=== PATIENT | male | born 1990 | race Caucasian/White ===

== ENCOUNTER 2016-11-19 16:27 | Inpatient (IN) | payer MEDICARE, OTHER ==
[~2016-11-19] VITALS: Ht 172.7 cm; Wt 66.1 kg
--- NOTE | 2016-11-19 | NUR ---
K 4.8 Addendum: 11/20/16 at 0513 by Evelina Huerta RN 11/20 @ 0000
[~2016-11-19 16:27] MED LIST: CARB100T PO; INSU100I10 SQ; INSU100I14 SQ; INSU100V2 SQ; INSU100V32 SQ
--- OUTSIDE RECORDS SUMMARY | 2016-11-19 16:31 | XMS REPORT | Summary of Care ---
Author Author Ramakrishna Anthony Organization Unknown Address [address], [place] [id number] Phone Unavailable Care Team Providers Care Pet Ambassador Name Role Phone Ramakrishna Anthony Unavailable Unavailable Saúl Tracy PP Unavailable Unavailable Unavailable Functional Status Functional Status Health Issues Name Dates Details Functional status health issues are not documented Status: Cognitive Status Health Issues Name Dates Details Cognitive status health issues are not documented Status: Problems Name Dates Details Type I diabetes mellitus, well controlled (250.01, E10.9) Status: Active Medications Name Dates Details NovoLOG FlexPen 100 UNIT/ML Subcutaneous Solution Pen-injector INJECT 15 UNITS SUBQ AC TID Quantity: 3 Refills: 3 Ramakrishna Anthony Started 18-Mar-2016 Active3 ML Pen (5 Pens) Levemir FlexTouch 100 UNIT/ML Subcutaneous Solution Pen-injector INJECT SUBCUTANEOUSLY UP TO 27 UNITS PER SLIDING SCALE DAILY. Quantity: 2 Refills: 2 Raj Ramakrishna Started 18-Mar-2016 Active3 ML Pen (5 Pens) Allergies and Adverse Reactions Name Dates Details No Known Drug Allergies Status: Active Procedures Procedure Dates Details Procedures not documented Immunization Name Dates Details Immunizations not documented Social History Name Dates Details Smoking StatusNever smoker Vital Signs Date Test Result Details No Known Vitals to report Results Date Description Value Details Results not documented Plan of Care Planned Observations Name Dates Details Planned Goals not documented Goal Instructions Instructions not documented Encounters Appointment; Ramakrishna Anthony Encounter Diagnosis: Problem not documented On 18-Mar-2016 15:15
[2016-11-19] MEDS ORDERED: LANTUS SOL100 UNIT/1 SC (16:49)
[2016-11-19] MEDS ORDERED: INSU100I14 SC (16:49)
[2016-11-19] MEDS ORDERED: SODIUM CHLORIDE FLUSH 3 ML SYR IV PRN (16:55)
[2016-11-19] MEDS ORDERED: ONDANSETRON 2 MG/ML (Z0FRAN) 2 ML VIAL IV ONE (17:00)
[2016-11-19] MEDS ORDERED: FUROSEMIDE 40 MG/4 ML (LASIX) VIAL IV ONE (17:30)
[2016-11-19 18:13] LABS: MEAN CORPUSCULAR HEMOGLOBIN 30.4 PG (26.0-34.0); MEAN CORPUSCULAR HGB CONC 34.5 g/dL (31.0-37.0); MEAN CORPUSCULAR VOLUME 88 FL (80-100); PLATELET COUNT 232 10^3uL (150-450); WHITE BLOOD COUNT 24.35 10^3uL (4.0-11.0)
[2016-11-19 18:18] LABS: BILIRUBIN,URINE Negative (Negative); CLARITY,URINE Clear; COLOR,URINE Yellow; GLUCOSE, URINE (UA) 2+ (Negative); LEUKOCYTE ESTERASE ,URINE Negative (Negative); UROBILINOGEN,URINE 0.2 mg/dL (0.2-1.0)
--- NOTE | 2016-11-19 18:20 | NUR ---
PATIENT HAS ACCIDENTALLY PULLED OUT IV WHEN HE GOT HIMSELF UP TO THE TOILET WITHOUT CALLING FOR ASSISTANCE. IV SITE ACTIVELY BLEEDING WHEN THIS NURSE ARRIVED IN ROOM. BLEEDING SITE COVERED WITH 10 PACK OF STERILE 4x4 AND SECURED WITH COBAN. APPROX 475 ML OF IVF HAS INFUSED PRIOR TO IV CATH REMOVAL.
[2016-11-19 18:25] LABS: ACETONE SERUM 2+ (Negative)
[2016-11-19 18:26] LABS: ALBUMIN 5.4 g/dL (3.4-5.0); ALKALINE PHOSPHATASE 134 U/L (38-126); ANION GAP 44.2 MEQ/L (3-15); BUN/CREATININE RATIO 16 (10-20); CALCULATED IONIZED CALCIUM 4.1 mg/dL (3.8-4.6); TOTAL PROTEIN 7.7 g/dL (6.4-8.5)
[2016-11-19 18:27] LABS: RBC,URINE 0-2 /HPF; URINE CENTRIFUGED VOLUME 12 mL
--- NOTE | 2016-11-19 18:34 | NUR ---
DR. WELDON INFORMED THAT PATIENT'S IV WAS PULLED OUT.
[2016-11-19] MEDS ORDERED: INSULIN REGULAR 1 UNIT/0.01 ML DOSE IV ONE (18:55)
[2016-11-19] MEDS ORDERED: SODIUM CHLORIDE IV PRN ×2 (19:35)
[2016-11-19] MEDS ORDERED: INSULIN REGULAR IV PRN ×2 (19:35)
[2016-11-19] MEDS ORDERED: [UNRECOGNIZED DRUG - OTHER] IV PRN ×2 (19:35)
[2016-11-19 19:51] LABS: BAND NEUTROPHILS % 4 % (0-6); EOSINOPHILS % 0 % (0-4); LYMPHOCYTES # 1.2 #; MONOCYTES # 2.4 #; MONOCYTES % 10 % (3-11); SEGMENTED NEUTROPHILS % 80 % (51-67); TOTAL CELLS COUNTED 100
[2016-11-19 19:52] LABS: RBC MORPH NORMAL (NORMAL)
--- NOTE | 2016-11-19 20:03 | NUR ---
Pt voided 200 cc of clear yellow urine.
[2016-11-19 20:04] LABS: ABG PCO2 123 mmHg (35-45); ABG PO2 135 mmHg (80-105)
[2016-11-19 20:05] LABS: ABG OXYGEN SATURATION 98 % (95-98)
[2016-11-19 20:20] LABS: MAGNESIUM* 2.5 mg/dL (1.6-2.3)
--- NOTE | 2016-11-19 20:31 | NUR ---
Alysha RN & SHANNA Shah from ICU mixed insulin for the IV Insulin drip. Alysha brought down the bag and started it on the pt in the left AC IV site.
--- NOTE | 2016-11-19 20:35 | NUR ---
Patient arrives to the unit via cart admitted to room 342, IV Insulin @ 7 ml/hr and NS bolus infusing, uses urinal immediately output 175 clear yellow, pants and underwear saturated removed. Grandmother in waiting room at this time.
[2016-11-19] MEDS ORDERED: DEXTROSE 50% 25 GM/50 ML SYRINGE IV PRN (20:45)
[2016-11-19] MEDS ORDERED: CALCIUM CARBONATE CHEWABLE 300 MG (TUMS) TABLET PO PRN (20:45)
[2016-11-19] MEDS ORDERED: MAG HYDROX/AL HYDROX/SIMETH 200-200-20/5 ML (MAG-AL PLUS) 30 ML UDC PO PRN (20:45)
[2016-11-19] MEDS ORDERED: DEXTROSE ORAL GEL (GLUTOSE 40%) 15 GM TUBE PO PRN (20:45)
[2016-11-19] MEDS ORDERED: GLUCAGON EMERGENCY 1 MG/KIT IM PRN (20:45)
[2016-11-19] MEDS ORDERED: ONDANSETRON 2 MG/ML (Z0FRAN) 2 ML VIAL IV PRN (20:45)
[2016-11-19] MEDS ORDERED: POLYETHYLENE GLYCOL 17 GM (MIRALAX) PACKET PO PRN (20:45)
[2016-11-19] MEDS ORDERED: INSULIN REGULAR VIAL 100 UNIT in SODIUM CHLORIDE 100 ML IV SCH (20:45)
[2016-11-19] MEDS ORDERED: POTASSIUM CL IVPB 50 ML IV PRN (20:45)
[2016-11-19] MEDS ORDERED: MAGNESIUM HYDROXIDE 80MG/ML (MILK OF MAGNESIA) 30 ML UDC PO PRN (20:45)
[2016-11-19] MEDS ORDERED: DOCUSATE SODIUM 100 MG (COLACE) CAP PO PRN (20:45)
[2016-11-19] MEDS ORDERED: PROMETHAZINE HCL INJ 12.5 MG in SODIUM CHLORIDE 25 ML IV PRN (20:45)
--- NOTE | 2016-11-19 21:27 | History and Physical (E) ---
History & Physical PCP: Saúl Tracy MD CC: vomiting HPI Hong Levine is a 26 year old male admitted from ED 11/19 with SIRS and DKA. He reported vomiting x 7 today. Feeling constipated. Has had BMs but they have been small, he says. In ED he was initially mildly tachycardic but other vitals charted as stable. WBC was 24.35 with 80% N and 4% B. Chemistry consistent with hyperglycemia and DKA with initial AG = 38. K was initially 7.2. (EKG showed peaked T-waves. Calcium was not given.) Mg 2.5. Phos 6.0. ABG showed pH 7.10, pCO2 123, pO2 135. He was given 1 L NS bolus in ED, another on transfer, insulin regular 7 units, and he was transferred to ICU for further management. On arrival to unit, awake, interactive, pleasant, able to speak in full sentences. Oriented. Not having pain or nausea at present. Onset of illness was just today with vomiting. States he started having vomiting and blood sugar this early AM was actually low at 68. Couldn't keep any food or fluid down though he tried to eat some bread and cheese. No diarrhea. Actually has been feeling more constipated than anything. Has been taking insulin as prescribed and denies missing doses. Prior to today, no fever or chills. No cough. No URI symptoms. No UTI symptoms. 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 HOME MEDICATIONS: Please see list at end of report. FH Doesn't know his mother. She did not raise him. Father when patient was 2 of MVA. Siblings healthy. SH Lives independently but on disability. Unemployed. Occasional marijuana use. Denies other drug use. History of chewing tobacco. Denies smoking. Occasional alcohol. Unmarried. ROS CONSTITUTION: Lost 6 kg since last admit. Denies fever or chills. HEENT: No change in vision or hearing. No sores in mouth, sore throat. CV: No chest pain, palpitations. PULM: No cough, but some dyspnea. GI: Per HPI, exam. : No dysuria. No blood in urine. MS: Chronic back pain. NEURO: Chronic right-sided hemiparesis. INTEG: No rashes, lesions, or sores. ENDO: No heat or cold intolerance. No polydipsia or polyuria. HEME/LYMPH: No easy bruising or bleeding. No swollen glands. PSYCH: No change in mood or behavior. OBJECTIVE Vital Signs Date Time Temp Pulse Resp B/P Pulse Ox O2 Delivery O2 Flow Rate FiO2 11/19/16 16:35 97.1 122 20 153/81 100 Room Air GEN: Awake, alert, oriented, tachypneic but speaking clear sentences. HEENT: EOMI, clear sclerae, well-healing thin laceration above right brow. Very dry oral mucosa, dry lips. CV: Tachy, regular, without murmur. LUNGS: CTA B with some intermittent rales in right base. ABD: Soft, NT/ND with hyperactive bowel sounds. EXTR: No C/C/E. Normal peripheral pulses. INTEG: No rash. NEURO: Right hemiparesis, chronic, stable. Laboratory Results-14 Days 11/19/16 17:15: Urine Bacteria None seen, Urine Bilirubin Negative, Urine Clarity Clear, Urine Collection Type Clean catch, Urine Color Yellow, Urine Glucose (UA) 2+H, Urine Ketones 4+, Urine Leukocyte Esterase Negative, Urine Nitrite Negative, Urine Protein Negative, Urine RBC 0-2, Urine RBC (Auto) 1+H, Urine Specific [place] 1.015, Urine Squamous Epithelial Cells 0-2, Urine Urobilinogen 0.2, Urine WBC 0- 2, Urine pH 5.0, Volume Urine Centrifuged 12 ml 11/19/16 17:50: Absolute Band Neutrophils 1.0, Acetone Level 2+, Alanine Aminotransferase (ALT/ SGPT) 57, Albumin 5.4#H, Albumin/Globulin Ratio 2.347H, Alkaline Phosphatase 134H, Anion Gap 44.2H, Aspartate Amino Transf (AST/SGOT) 32, BUN/Creatinine Ratio 16, Band Neutrophils % 4, Basophils # (Auto) , Basophils # (Manual) 0.2, Basophils % (Manual) 1, Basophils (%) (Auto) , Blood Morphology Comment Normal, Blood Urea Nitrogen 20H, Calcium Level 9.7, Calcium/Ionized Calcium Ratio 4.1, Calculated Osmolality 300, Carbon Dioxide Level 5*L, Chloride Level 89L, Creatinine 1.22#, Differential Total Cells Counted 100, Eosinophils # 0.0, Eosinophils # (Auto) , Eosinophils % (Manual) 0, Eosinophils (%) (Auto) , Estimat Glomerular Filtration Rate 86.2, Estimated GFR (Non- 71.3, Glucose Level 865#*H, Hematocrit 45.20, Hemoglobin 15.6, Lymphocytes # 1.2 , Lymphocytes # (Auto) , Lymphocytes % (Manual) 5L, Lymphocytes (%) (Auto) , Mean Corpuscular Hemoglobin 30.4, Mean Corpuscular Hemoglobin Concent 34.5, Mean Corpuscular Volume 88, Mean Platelet Volume 11.0H, Monocytes # 2.4, Monocytes # (Auto) , Monocytes % (Manual) 10, Monocytes (%) (Auto) , Neutrophils # 19.5, Neutrophils # (Auto) , Neutrophils (%) (Auto) , Platelet Count 232, Potassium Level 7.2#*H, Red Blood Count 5.13, Red Cell Distribution Width 11.8, Segmented Neutrophils % 80H, Sodium Level 132#L, Total Bilirubin 0.7 , Total Protein 7.7, White Blood Count 24.35H 11/19/16 19:15: Vernon Test pos, Arterial Blood Base Excess -26.0L, Arterial Blood HCO3 4.0L, Arterial Blood Oxygen Saturation 98, Arterial Blood Partial Pressure CO2 123*H, Arterial Blood Partial Pressure O2 135H, Arterial Blood Total CO2 5.0L, Arterial Blood pH 7.10*L, Blood Gas Puncture Site lra, FiO2 % 21.0 11/19/16 19:47: Glucose Level 747*H, Potassium Level 5.5#H, Magnesium Level 2.5H, Phosphorus Level 6.0#H IMAGING 11/19/16 ACUTE ABD SERIES: PENDING ASSESSMENT Hong Levine is a 26 year old male admitted from ED 11/19 with DKA in the setting of diabetes mellitus type 1. PLAN * SIRS: Due to DKA. Check CXR to assess for sign of infection. * DKA: DKA management per protocol. Serial RFP. * Dehydration: IVF per DKA protocol. * F/E/N: NPO until AG closing. Peripheral IV x 2. IVF per DKA protocol * Prophylaxis: SCDs * Code Status: Full * Dispo: ICU status for above issues. Expect 2-3 day stay. CHRONIC ISSUES * Tobacco abuse: [employer] Specialist cessation. * Marijuana Use: [employer] cessation. * F/E/N: Diabetic diet. * Code Status: Full code * Dispo: Obs for above issues, planning 1-2 day stay. Allergies/Home Medications Allergies: Coded Allergies: No Known Drug Allergies (Unverified , 06/25/12) Reported Home Medications Scheduled Insulin Aspart (Novolog) 5 UNITS SQ TIDWM Insulin Aspart (Novolog) 100 UNIT SC TIDWM (Reported) Insulin Glargine,Hum.rec.anlog (Lantus Solostar) 100 UNIT SC HS (Reported) Discontinued Medications Insulin Glargine,Hum.rec.anlog (Insulin Lantus Solostar Pen) 15 UNITS SQ HS Discontinued Reason: Dose changed Copies to: End of Report . ADDI BYRD MD Nov 19, 2016 21:27
[2016-11-19] MEDS: 0.45% SOD CHLORIDE (1/2 NS) 1,000 ML IV SCH (21:34)
--- NOTE | 2016-11-19 21:45 | NUR ---
Second Liter bolus complete, IV fluids changed to 1/2 NS @ 200 ml/hr.
[2016-11-19] MEDS: D5 1/2 NS W/KCL 20 MEQ/L 1,000 ML IV SCH (23:23)
--- NOTE | 2016-11-19 23:27 | NUR ---
2318 Accu check 228, IV fluids changed to D5 1/2 NS 2 KCL 20MeQ per per order. Patient resting in bed with eyes closed. Insulin infusing @ 3.5 ml/hr.
[2016-11-20] VITALS (14 sets, daily range): BP systolic 106–127; BP diastolic 49–74
--- NOTE | 2016-11-20 00:30 | NUR ---
IV R insulin decreased to 0.03 u/kg/hr - accu check of 164 - Repeat accu check in 2 hour
[2016-11-20 00:41] LABS: ALBUMIN 4.5 g/dL (3.4-5.0); ANION GAP 28.1 MEQ/L (3-15); PHOSPHORUS 2.3 mg/dL (2.4-4.9)
--- NOTE | 2016-11-20 03:00 | NUR ---
Dry heaves, nausea. Prn Zofran
--- NOTE | 2016-11-20 03:30 | NUR ---
Prn Zofran effective, resting quietly in bed with eyes closed.
--- NOTE | 2016-11-20 04:15 | NUR ---
Accu check 354 MD notified IV insulin increased to 1 ml/hr.
--- NOTE | 2016-11-20 04:30 | NUR ---
K resulted @ 5.5 - D5 1/2 ns w KCL 20 stopped, resumed 1/2 NS
[2016-11-20 04:32] LABS: ALBUMIN 4.1 g/dL (3.4-5.0); ANION GAP 26.8 MEQ/L (3-15); PHOSPHORUS 2.5 mg/dL (2.4-4.9)
[2016-11-20] MEDS: D5 1/2 NS W/KCL 20 MEQ/L 1,000 ML IV SCH ×5 (04:33→18:10)
--- NOTE | 2016-11-20 04:45 | NUR ---
Pradeep Jang for N/ and dry heaves.
[2016-11-20] MEDS: 0.45% SOD CHLORIDE (1/2 NS) 1,000 ML IV SCH ×3 (04:54→12:41)
--- NOTE | 2016-11-20 05:00 | NUR ---
Accu check 350; insulin to 1.5 u/hr recheck blood glucose 1 hour.
--- NOTE | 2016-11-20 06:00 | NUR ---
Accu check 304, IV regular insulin increased to 2 u/hr. Patient resting soundly in bed, respirations even non labored on room air, skin warm dry intact, juan in appearance, takes po ice chips, no c/o N at this time, urinal at bedside, clear yellow output at this time. Continue to monitor
--- NOTE | 2016-11-20 07:30 | NUR ---
Report received from Evelina OTERO and care assumed. Pt sleeping IV infusing per pump. Insulin gtt infusing per pump at 2.5 unit/hr.
--- NOTE | 2016-11-20 07:32 | Progress Note (E) ---
Progress Note SUBJECTIVE Overnight, no major issues. Anion gap slow to close, still 21 as of 0400. 0800 labs not yet drawn. Bicarb still low. Tolerating therapies. OBJECTIVE Vital Signs Date Time Temp Pulse Resp B/P Pulse Ox O2 Delivery O2 Flow Rate FiO2 11/20/16 06:00 98.1 83 18 112/59 100 Room air I & O 11/19/16 11/20/16 Cumulative From/Thru 19:00 07:00 11/19/16 16:35 - 11/20/16 06:00 Intake Total 2647 ml 2647 ml Output Total 950 ml 950 ml Balance 1697 ml 1697 ml GEN: Sleeping. Stirs to exam. HEENT: EOMI, clear sclerae, well-healing thin laceration above right brow. Very dry oral mucosa, dry lips. CV: Tachycardia resolved. Regular, without murmur. SR on tele. LUNGS: CTA B with some intermittent rales in right base. ABD: Soft, NT/ND with hyperactive bowel sounds. EXTR: No C/C/E. Normal peripheral pulses. INTEG: No rash. NEURO: Right hemiparesis, chronic, stable. Lab-Past 14 Days, 35 Results 11/19/16 17:15: Urine Bacteria None seen, Urine Bilirubin Negative, Urine Clarity Clear, Urine Collection Type Clean catch, Urine Color Yellow, Urine Glucose (UA) 2+H, Urine Ketones 4+, Urine Leukocyte Esterase Negative, Urine Nitrite Negative, Urine Protein Negative, Urine RBC 0-2, Urine RBC (Auto) 1+H, Urine Specific [place] 1.015, Urine Squamous Epithelial Cells 0-2, Urine Urobilinogen 0.2, Urine WBC 0- 2, Urine pH 5.0, Volume Urine Centrifuged 12 ml 11/19/16 17:50: Absolute Band Neutrophils 1.0, Acetone Level 2+, Alanine Aminotransferase (ALT/ SGPT) 57, Albumin 5.4#H, Albumin/Globulin Ratio 2.347H, Alkaline Phosphatase 134H, Anion Gap 44.2H, Aspartate Amino Transf (AST/SGOT) 32, BUN/Creatinine Ratio 16, Band Neutrophils % 4, Basophils # (Auto) , Basophils # (Manual) 0.2, Basophils % (Manual) 1, Basophils (%) (Auto) , Blood Morphology Comment Normal, Blood Urea Nitrogen 20H, Calcium Level 9.7, Calcium/Ionized Calcium Ratio 4.1, Calculated Osmolality 300, Carbon Dioxide Level 5*L, Chloride Level 89L, Creatinine 1.22#, Differential Total Cells Counted 100, Eosinophils # 0.0, Eosinophils # (Auto) , Eosinophils % (Manual) 0, Eosinophils (%) (Auto) , Estimat Glomerular Filtration Rate 86.2, Estimated GFR (Non- 71.3, Glucose Level 865#*H, Hematocrit 45.20, Hemoglobin 15.6, Hemoglobin A1c 8.1H, Lymphocytes # 1.2, Lymphocytes # (Auto) , Lymphocytes % (Manual) 5L, Lymphocytes (%) (Auto) , Mean Corpuscular Hemoglobin 30.4, Mean Corpuscular Hemoglobin Concent 34.5, Mean Corpuscular Volume 88, Mean Platelet Volume 11.0H , Monocytes # 2.4, Monocytes # (Auto) , Monocytes % (Manual) 10, Monocytes (%) ( Auto) , Neutrophils # 19.5, Neutrophils # (Auto) , Neutrophils (%) (Auto) , Platelet Count 232, Potassium Level 7.2#*H, Red Blood Count 5.13, Red Cell Distribution Width 11.8, Segmented Neutrophils % 80H, Sodium Level 132#L, Total Bilirubin 0.7, Total Protein 7.7, White Blood Count 24.35H 11/19/16 19:15: Vernon Test pos, Arterial Blood Base Excess -26.0L, Arterial Blood HCO3 4.0L, Arterial Blood Oxygen Saturation 98, Arterial Blood Partial Pressure CO2 123*H, Arterial Blood Partial Pressure O2 135H, Arterial Blood Total CO2 5.0L, Arterial Blood pH 7.10*L, Blood Gas Puncture Site lra, FiO2 % 21.0 11/19/16 19:47: Glucose Level 747*H, Potassium Level 5.5#H, Magnesium Level 2.5H, Phosphorus Level 6.0#H, Thyroid Stimulating Hormone (TSH) 1.00 11/20/16 00:25: Albumin 4.5, Anion Gap 28.1H, Blood Urea Nitrogen 18, Calcium Level 8.7L, Carbon Dioxide Level 9*L, Chloride Level 107, Creatinine 1.01, Estimat Glomerular Filtration Rate 107.2, Estimated GFR (Non- 88.6, Glucose Level 179#H, Phosphorus Level 2.3#L, Potassium Level 4.8, Sodium Level 140# 11/20/16 04:14: Albumin 4.1, Anion Gap 26.8H, Blood Urea Nitrogen 15, Calcium Level 8.3L, Carbon Dioxide Level 9*L, Chloride Level 104, Creatinine 0.93, Estimat Glomerular Filtration Rate 117.9, Estimated GFR (Non- 97.5, Glucose Level 377#H, Phosphorus Level 2.5, Potassium Level 5.5H, Sodium Level 134L IMAGING 11/19/16 ACUTE ABD SERIES: No acute abnormality. Radiologist interpretation pending. ASSESSMENT Hong Levine is a 26 year old male admitted from ED 11/19 with DKA in the setting of diabetes mellitus type 1. PLAN * SIRS: Due to DKA. Check CXR to assess for sign of infection. * DKA: DKA management per protocol. Serial RFP. * Dehydration: IVF per DKA protocol. * F/E/N: NPO until AG closing. Peripheral IV x 2. IVF per DKA protocol * Prophylaxis: SCDs * Code Status: Full * Dispo: ICU status for above issues. Expect 2-3 day stay. CHRONIC ISSUES * Tobacco abuse: Flarer cessation. * Marijuana Use: Flarer cessation. * F/E/N: Diabetic diet. * Code Status: Full code * Dispo: Obs for above issues, planning 1-2 day stay. ADDI BYRD MD Nov 20, 2016 07:30
--- NOTE | 2016-11-20 07:33 | NUR ---
Report given to Mela Lynne RN
[2016-11-20 08:23] LABS: BASOPHILS % (AUTO) 0 % (0-2); EOSINOPHILS % (AUTO) 0 % (0-4); LYMPHOCYTES # (AUTO) 1.2 X10^3; MEAN CORPUSCULAR HEMOGLOBIN 31.1 PG (26.0-34.0); MEAN CORPUSCULAR HGB CONC 35.5 g/dL (31.0-37.0); MEAN CORPUSCULAR VOLUME 88 FL (80-100); MEAN PLATELET VOLUME 10.4 FL (6.0-9.5); MONOCYTES # (AUTO) 2.1 X10^3; MONOCYTES % (AUTO) 11 % (3-11); NEUTROPHILS # (AUTO) 15.7 X10^3; NEUTROPHILS % (AUTO) 82 % (51-67); PLATELET COUNT 165 10^3uL (150-450)
[2016-11-20 08:57] LABS: ALBUMIN 4.3 g/dL (3.4-5.0); ANION GAP 26.2 MEQ/L (3-15); PHOSPHORUS 2.7 mg/dL (2.4-4.9)
--- NOTE | 2016-11-20 09:10 | Diagnostic Imaging Report ---
CLINICAL INDICATION: DKA, constipation. EXAMS: X-ray of the chest PA view and x-ray of the abdomen supine and upright views. COMPARISONS: X-ray of the chest and abdomen dated 02/14/2011. FINDINGS: LUNGS/ PLEURA: Lungs are clear. There is no pneumothorax. There is no pleural effusion. MEDIASTINUM: Unremarkable. PULMONARY VASCULATURE: Unremarkable. HEART: Unremarkable. BONES/ EXTRATHORACIC SOFT TISSUE: Unremarkable. ABDOMEN AND PELVIS: Of note, the right side of the abdomen is not completely imaged on this exam. Lower portion of the pelvis is not completely imaged as well. Again noted discontinuous shunt tubing overlying the right side of body which is discontinuous near the low neck/upper chest and overlying the pelvis region. Residual shunt tubing is again seen overlying the pelvis. Unremarkable x-ray of the abdomen with nonobstructed bowel gas pattern. There is no evidence of abdominal free air. There is no significant stool load seen. There are no focal calcifications overlying the expected regions/ pathways of both kidneys, ureters, and bladder regions. IMPRESSION: 1: Stable chest x-ray exam with no interval radiographic evidence of acute cardiopulmonary process. 2: Stable x-ray of the abdomen with no interval acute process. 3: There is no significant stool load seen on this exam. Dictated by: Dictated on workstation # [id number]
[2016-11-20 12:42] LABS: ALBUMIN 4.1 g/dL (3.4-5.0); ANION GAP 23.4 MEQ/L (3-15); PHOSPHORUS 1.4 mg/dL (2.4-4.9)
--- NOTE | 2016-11-20 12:45 | NUR ---
MED REC COMPLETE--[email or web address]
[2016-11-20 16:52] LABS: ALBUMIN 3.7 g/dL (3.4-5.0); ANION GAP 18.7 MEQ/L (3-15); PHOSPHORUS 1.2 mg/dL (2.4-4.9)
--- NOTE | 2016-11-20 17:00 | NUR ---
Summary: 0800 accu check results 289 mg/dl and insulin increased 3.75 u/hr. 0900 accu check results 393 mg/dl, insulin increased to 5.6 u/hr after calling Dr. Solorio to confirm. 1030 accu check results 351 mg/dl, insulin increased to 8.4 u/hr. Pt has slept most of the time. 1130 accu check results 228 mg/dl, insulin decreased to 4.2 u/hr. 1230 accu check results 200 mg/dl, insuliln decreased to 2.1 u/hr. IV changed to D 5 1/2 NS with 20 KCl infusing at 200cc/hr. Pt has been up and voided 2 times this morning and then went back to bed and has been sleeping. 1400 accu check results 161 mg/dl, insulin unchanged at this time. 1600 accu check results 136 mg/dl. Pt c/o chest pain, informed Dr. Solorio, VS stable, monitor showing SR with no changes noted instructed to give pt tylenol and pt can have clr liquid supper. Voided 600 cc of urine. 1700 Pt gotten up to chair at bedside and linens changed. Pt denies any nausea at this time. Grandparents have been into see pt today.
[2016-11-20] MEDS: ACETAMINOPHEN 325 MG TAB (TYLENOL) PO PRN (17:19)
--- NOTE | 2016-11-20 18:28 | NUR ---
Pt returned to bed, only drank his tea for supper, states "I'm not very hungry." Pt watching TV. Denies needs at present.
--- NOTE | 2016-11-20 19:05 | NUR ---
Report received, care assumed. Provided urinal for pt use, voided without difficulty 300 cc clear yellow urine. IVF infusing at 200cc/hr. Insulin drip currently infusing at 2.1units/hr. Pt denies discomfort. Cooperative with assessment. Grandmother here to visit. No other needs at this time.
--- NOTE | 2016-11-20 19:07 | NUR ---
Report given to Tisha OTERO and care relinquished.
--- NOTE | 2016-11-20 20:00 | NUR ---
BGM 135, no changes to insulin drip. Continues at 2.1 units/hr.
[2016-11-20] MEDS: POTASSIUM PHOSPHATE 15 MM in SODIUM CHLORIDE 250 ML IV SCH ×2 (20:48→22:50)
--- NOTE | 2016-11-20 21:00 | NUR ---
Pt resting well with eyes closed, no signs discomfort. Received new orders at 2009, IVF rate changed to 150cc at that time. Phosphorous infusion started at 2044 after receiving from pharmacy. Infusing in LAC at 125cc/hr. No changes to insulin drip. Diet was also changed. Provided pt with diet Sprite, declined anything else. Call light in reach.
--- NOTE | 2016-11-20 21:05 | NUR ---
Per Dr. Solorio, do not recheck phosphorous 2 hours post infusion. Labs already ordered for in AM which will include that value.
[2016-11-20 21:44] LABS: ALBUMIN 3.8 g/dL (3.4-5.0); ANION GAP 19.7 MEQ/L (3-15); PHOSPHORUS 1.3 mg/dL (2.4-4.9)
--- NOTE | 2016-11-20 21:55 | NUR ---
Relayed lab values to Dr. Solorio via text, no new orders.
--- NOTE | 2016-11-20 22:00 | NUR ---
BGM 121, no changes to insulin drip.
[2016-11-21] VITALS (17 sets, daily range): BP systolic 117–136; BP diastolic 62–87
--- NOTE | 2016-11-21 | NUR ---
BGM 117, no changes to insulin drip.
[2016-11-21] MEDS: D5 1/2 NS W/KCL 20 MEQ/L 1,000 ML IV SCH ×4 (00:10→20:54)
--- NOTE | 2016-11-21 00:20 | NUR ---
Pt resting well with eyes closed. Wakes easily. No reports discomfort. No needs at this time. Call light in reach.
[2016-11-21 00:43] LABS: ALBUMIN 3.3 g/dL (3.4-5.0); PHOSPHORUS 2.4 mg/dL (2.4-4.9)
--- NOTE | 2016-11-21 00:50 | NUR ---
Relayed lab values to Dr. Solorio via text.
[2016-11-21] MEDS ORDERED: SODIUM PHOSPHATE IV ONE (00:55)
[2016-11-21] MEDS ORDERED: SODIUM CHLORIDE IV ONE (00:55)
--- NOTE | 2016-11-21 02:00 | NUR ---
BGM 119, no changes to insulin drip.
--- NOTE | 2016-11-21 04:00 | NUR ---
BGM 100, no changes to insulin drip.
[2016-11-21 04:20] LABS: BASOPHILS % (AUTO) 0 % (0-2); EOSINOPHILS # (AUTO) 0.1 10^3uL; EOSINOPHILS % (AUTO) 1 % (0-4); LYMPHOCYTES # (AUTO) 1.8 X10^3; MEAN CORPUSCULAR HEMOGLOBIN 30.7 PG (26.0-34.0); MEAN CORPUSCULAR VOLUME 88 FL (80-100); MEAN PLATELET VOLUME 10.2 FL (6.0-9.5); MONOCYTES # (AUTO) 1.1 X10^3; MONOCYTES % (AUTO) 10 % (3-11); NEUTROPHILS # (AUTO) 8.1 X10^3; NEUTROPHILS % (AUTO) 73 % (51-67); PLATELET COUNT 108 10^3uL (150-450); WHITE BLOOD COUNT 11.09 10^3uL (4.0-11.0)
[2016-11-21 05:12] LABS: ALBUMIN 3.2 g/dL (3.4-5.0); ANION GAP 13.1 MEQ/L (3-15); PHOSPHORUS 1.9 mg/dL (2.4-4.9)
--- NOTE | 2016-11-21 05:30 | NUR ---
Pt has slept very little tonight due to cares provided and blood draws. Pt has been very cooperative. Has not had any reports of nausea or discomfort. IVF continue to infuse at 150cc/hr with insulin drip infusing at 2.1 units/hr. Pt also has Phosphate infusing at rate of 63ml/hr. No needs at this time. Call light in reach. Pt currently resting with eyes closed, lightly snoring.
--- NOTE | 2016-11-21 05:57 | NUR ---
BGM 114, no changes to insulin drip.
--- NOTE | 2016-11-21 06:10 | NUR ---
Relayed lab values to Dr. Solorio via text.
--- NOTE | 2016-11-21 07:10 | NUR ---
Report given to SHANNA Duenas
[2016-11-21] MEDS ORDERED: POTASSIUM PHOSPHATE 21 MM in SODIUM CHLORIDE 250 ML IV ONE (07:40)
[2016-11-21] MEDS: SODIUM CHLORIDE FLUSH 10 ML SYR IV PRN ×2 (08:14→18:14)
--- NOTE | 2016-11-21 08:30 | NUR ---
The patient is sleeping in bed on assessment. respirations are even and unlabored, skin is dry and pulses palpable. BG at 108 this AM. No changes made. VSS with SBradycardia on the monitor. Hong c/o chest pain 5/10 on the pain scale. Does not radiate and thinks it is contributed to recent vomitting. Dr. Moncada notified and Troponin and EKG ordered. KPhos infusing into LAC at 64 and Insulin gtt at 2.10 into RAC.
[2016-11-21 08:32] LABS: ALBUMIN 3.4 g/dL (3.4-5.0); ANION GAP 15.2 MEQ/L (3-15); PHOSPHORUS 1.9 mg/dL (2.4-4.9)
[2016-11-21] MEDS: ACETAMINOPHEN 325 MG TAB (TYLENOL) PO PRN (08:50)
--- NOTE | 2016-11-21 09:30 | NUR ---
Troponin and EKG are wnl. The patient has little appetite and requests to sleep at this time. Infusions continue into RAC and LAC
--- NOTE | 2016-11-21 10:18 | Progress Note-A/P (E) ---
Progress Note Subjective: Patient states he is feeling better today except for throat pain and chest pain. He states he has never had any pain like this before. He denies palpitations or diaphoresis. Objective: Current Medications Acetaminophen 650 mg Q6H PRN PO Calcium Carbonate 300 mg Q8H PRN PO Al Hydrox/Mg Hydrox/Simethicone 30 ml Q6H PRN PO Ondansetron 4 mg Q6H PRN IV Promethazine Q6H PRN IV Magnesium Hydroxide 30 ml DAILY PRN PO Polyethylene Glycol 17 gm DAILY PRN PO Docusate 100 mg BID PRN PO Dextrose 15 gm Q15M PRN PO Dextrose PRN IV Glucagon 1 mg PRN IM D5NS @ 150 mls/hr Q6H40M IV Insulin drip IV Potassium Chloride PRN PRN IV Pantoprazole 20 mg DAILY@07 PO Lantus 27 unit HS SC Vital Signs Date Time Temp Pulse Resp B/P Pulse Ox O2 Delivery O2 Flow Rate FiO2 11/21/16 10:05 97.2 62 15 122/70 99 Room air I & O Past 24 hrs 11/21/16 07:00 Intake Total 5062 ml Output Total 2825 ml Balance 2237 ml Intake Oral 180 ml IV Total 4882 ml Output Urine Total 2825 ml Physical Exam General--Awake and alert. No distress. HEENT--Normocephalic. MMM in oral cavity. Lungs--Clear to auscultation bilaterally. Nonlabored respirations. Heart--Bradycardic rate. Normal rhythm. Abdomen--Normal bowel sounds. Soft. Nondistended. Nontender. Extremities--No edema. Past 24 hour Lab Results 11/20/16 12:10 11/20/16 16:30 11/20/16 20:38 11/21/16 00:20 11/21/16 04:10 11/21/16 04:45 11/21/16 08:11 Laboratory Results Past 24 Hrs 11/20/16 12:10: Albumin 4.1, Anion Gap 23.4, Blood Urea Nitrogen 12, Calcium Level 8.7, Carbon Dioxide Level 12, Chloride Level 106, Creatinine 0.89, Estimat Glomerular Filtration Rate 124.1, Estimated GFR (Non- 102.5, Glucose Level 200, Phosphorus Level 1.4, Potassium Level 4.6, Sodium Level 137 11/20/16 16:30: Albumin 3.7, Anion Gap 18.7, Blood Urea Nitrogen 9, Calcium Level 8.7, Carbon Dioxide Level 17, Chloride Level 107, Creatinine 0.77, Estimat Glomerular Filtration Rate 146.6, Estimated GFR (Non- 121.2, Glucose Level 158, Phosphorus Level 1.2, Potassium Level 4.1, Sodium Level 139 11/20/16 20:38: Albumin 3.8, Anion Gap 19.7, Blood Urea Nitrogen 8, Calcium Level 9.0, Carbon Dioxide Level 13, Chloride Level 114, Creatinine 0.75, Estimat Glomerular Filtration Rate 151.2, Estimated GFR (Non- 124.9, Glucose Level 154, Phosphorus Level 1.3, Potassium Level 4.6, Sodium Level 143 11/21/16 00:20: Albumin 3.3, Anion Gap 14.0, Blood Urea Nitrogen 6, Calcium Level 8.4, Carbon Dioxide Level 17, Chloride Level 110, Creatinine 0.68, Estimat Glomerular Filtration Rate 169.3, Estimated GFR (Non- 139.9, Glucose Level 133, Phosphorus Level 2.4, Potassium Level 4.6, Sodium Level 137 11/21/16 04:10: Basophils # (Auto) 0.0, Basophils (%) (Auto) 0, Eosinophils # (Auto) 0.1, Eosinophils (%) (Auto) 1, Hematocrit 39.70, Hemoglobin 13.9, Lymphocytes # (Auto ) 1.8, Lymphocytes (%) (Auto) 16, Mean Corpuscular Hemoglobin 30.7, Mean Corpuscular Hemoglobin Concent 35.0, Mean Corpuscular Volume 88, Mean Platelet Volume 10.2, Monocytes # (Auto) 1.1, Monocytes (%) (Auto) 10, Neutrophils # ( Auto) 8.1, Neutrophils (%) (Auto) 73, Platelet Count 108, Red Blood Count 4.53, Red Cell Distribution Width 12.0, White Blood Count 11.09 11/21/16 04:45: Albumin 3.2, Anion Gap 13.1, Blood Urea Nitrogen 5, Calcium Level 8.4, Carbon Dioxide Level 19, Chloride Level 111, Creatinine 0.69, Estimat Glomerular Filtration Rate 166.4, Estimated GFR (Non- 137.5, Glucose Level 128, Phosphorus Level 1.9, Potassium Level 3.9, Sodium Level 138, Troponin I < 0.012 11/21/16 08:11: Albumin 3.4, Anion Gap 15.2, Blood Urea Nitrogen 5, Calcium Level 8.7, Carbon Dioxide Level 17, Chloride Level 115, Creatinine 0.73, Estimat Glomerular Filtration Rate 155.9, Estimated GFR (Non- 128.9, Glucose Level 112, Phosphorus Level 1.9, Potassium Level 4.5, Sodium Level 143 Imaging Results 11.20.16 Abdominal series IMPRESSION: 1: Stable chest x-ray exam with no interval radiographic evidence of acute cardiopulmonary process. 2: Stable x-ray of the abdomen with no interval acute process. 3: There is no significant stool load seen on this exam. Assessment/Plan SIRS Criteria met with tachycardia and leukocytosis. Attributed to DKA. CXR negative. DKA Protocol initiated Will start lantus tonight. Continue drip through night given anion gap. Will look to turn off drip in the morning, and start mealtime insulin. Continue to monitor labs closely. Chest pain today EKG showed no evidence of ischemia. Troponin has been normal, continue to monitor. GERD Adding PPI, creatinine has been normal. Tobacco abuse Counseled cessation. Marijuana Use Counseled cessation. FEN Diabetic diet. Peripheral IV x 2. IVF per DKA protocol, currently running D5NS with 20KCl att 150/hr. Electrolytes--phos has been low, replacing. DVT Prophylaxis SCDs Code Status Full code. Dispo ICU status for above issues. Will start lantus tonight, continuing insulin drip. Will attempt to stop drip tomorrow morning and start meal time insulin. Continue to monitor labs. JAVED BRADLEY MD Nov 21, 2016 10:18
--- NOTE | 2016-11-21 14:02 | NUR ---
Patient is up to shower at this time
--- NOTE | 2016-11-21 15:10 | NUR ---
The patient is resting in bed quietly at this time. Respirations are even and unlabored and skin is dry and warm. Grandmother at the bedside. VSS and telemetry reads SB. Patient continues to have chest and throat pain contributed to acid reflux. Hong has had a poor appetite throughout the day. BG check at 1400 was 171. Insulin drip continues to infuse at 2.10 units/hr.
[2016-11-21] MEDS ORDERED: PANTOPRAZOLE IV 40 MG in SODIUM CHLORIDE FLUSH 10 ML IV ONE (17:55)
[2016-11-21] MEDS ORDERED: PANTOPRAZOLE 40 MG (PROTONIX) VIAL IV ONE (18:12)
--- NOTE | 2016-11-21 18:31 | NUR ---
The patient is up in bed watching television for the majority of the afternoon. He is up ad jamshid to the bathroom and able make needs known. respirations are even and unlabored skin is dry VSS and wnl. IV protonix given this afternoon as the patient continues to struggle eating meals without pain and reflux. BG @ 1800 is 170 and Insulin drip continues to infuse into the RAC at 2.10 units/hr.
--- NOTE | 2016-11-21 18:47 | NUR ---
Report given to Tisha OTERO and care relinquished.
--- NOTE | 2016-11-21 18:50 | NUR ---
Report received, care assumed. Pt resting in bed with eyes closed.
--- NOTE | 2016-11-21 19:20 | NUR ---
Pt awake. Voided in urinal clear yellow urine without difficulty. Denies discomfort. Reports not having an appetite for two days. Consumed less than 5% of dinner tray. Offered to get something else more appetizing, pt states he will eat a sandwich. Ordered sandwich from dietary. Will continue to monitor.
--- NOTE | 2016-11-21 19:50 | NUR ---
Pt ate approximately 25% of sandwich given. Stated it wasn't going down well and wanted it thrown away. Denies other needs.
--- NOTE | 2016-11-21 20:00 | NUR ---
BGM 184, no changes made to insulin drip.
[2016-11-21] MEDS ORDERED: INSULIN GLARGINE 1 UNIT/0.01ML (LANTUS) DOSE SC ONE (20:28)
[2016-11-21] MEDS ORDERED: INSULIN GLARGINE 1 UNIT/0.01ML (LANTUS) DOSE SC SCH (21:00)
--- NOTE | 2016-11-21 23:50 | NUR ---
BGM 79, insulin gtt stopped. Provided grape juice per patient preference. Pt awake, alert and watching tv. Denies other needs. Will continue to monitor.
[2016-11-22] VITALS: BP 124/87
--- NOTE | 2016-11-22 00:55 | NUR ---
BGM 149, restarted insulin gtt at 50% of previous setting. Insulin gtt now nfusing at 1 unit/hr. Pt remains awake. Denies any discomfort. Reports sleeping late afternoon or early evening. No other needs.
[2016-11-22 01:00] VITALS: BP 124/87
--- NOTE | 2016-11-22 01:49 | NUR ---
BGM 122, no changes to insulin gtt.
--- NOTE | 2016-11-22 03:00 | NUR ---
BGM 84, stopped insulin gtt. Pt declined eating or drinking, is finally sleeping. Will recheck in one hour. IVF continue to infuse with D5 1/2NS c 20KCL.
[2016-11-22] MEDS: D5 1/2 NS W/KCL 20 MEQ/L 1,000 ML IV SCH (03:11)
[2016-11-22 04:00] VITALS: BP 107/55
--- NOTE | 2016-11-22 04:00 | NUR ---
BGM 73, insulin gtt remains off. Pt given cheese and juice, pt consumed all of it. No c/o discomfort. Pt alert, easy to wake. No other needs. Will recheck BGM in one hour.
[2016-11-22 05:00] VITALS: BP 107/55
--- NOTE | 2016-11-22 05:00 | NUR ---
BGM 124, insulin gtt remains off. Will continue to monitor.
--- NOTE | 2016-11-22 06:00 | NUR ---
BGM 119, no changes made, insulin gtt remains off. Pt awake, alert. Lab personnel in with pt to draw blood. Pt has slept very little tonight. Has had no c/o discomfort. Prefers to go home today, explained that may be unlikely. Pt very cooperative with cares. IVF continue to infuse at 150cc/hr. No other needs now.
--- NOTE | 2016-11-22 06:45 | NUR ---
BGM 123, insulin gtt remains off, no changes.
[2016-11-22 06:46] LABS: BASOPHILS % (AUTO) 1 % (0-2); EOSINOPHILS # (AUTO) 0.2 10^3uL; EOSINOPHILS % (AUTO) 4 % (0-4); MEAN CORPUSCULAR VOLUME 85 FL (80-100); MEAN PLATELET VOLUME 11.2 FL (6.0-9.5); MONOCYTES # (AUTO) 0.6 X10^3; MONOCYTES % (AUTO) 9 % (3-11); NEUTROPHILS # (AUTO) 3.6 X10^3; NEUTROPHILS % (AUTO) 53 % (51-67); PLATELET COUNT 98 10^3uL (150-450); WHITE BLOOD COUNT 6.64 10^3uL (4.0-11.0)
[2016-11-22 06:52] LABS: MEAN CORPUSCULAR HGB CONC 36.4 g/dL (31.0-37.0)
--- NOTE | 2016-11-22 06:54 | NUR ---
Report given to SHANNA Duenas.
[2016-11-22] MEDS ORDERED: PANTOPRAZOLE 20 MG (PROTONIX) TABLET PO SCH (07:00)
[2016-11-22 07:09] LABS: ALBUMIN 3.5 g/dL (3.4-5.0); MAGNESIUM* 1.9 mg/dL (1.6-2.3); PHOSPHORUS 2.7 mg/dL (2.4-4.9)
[2016-11-22] MEDS ORDERED: DEXTROSE 50% 25 GM/50 ML SYRINGE IV PRN (07:15)
[2016-11-22] MEDS ORDERED: DEXTROSE ORAL GEL (GLUTOSE 40%) 15 GM TUBE PO PRN (07:15)
[2016-11-22] MEDS ORDERED: GLUCAGON EMERGENCY 1 MG/KIT IM PRN (07:15)
[2016-11-22] MEDS: INSULIN LISPRO 1 UNIT/0.01 ML (HUMALOG) DOSE SC SCH ×4 (07:30→12:00)
[2016-11-22 08:21] VITALS: BP 137/79
--- NOTE | 2016-11-22 08:59 | Progress Note-A/P (E) ---
Progress Note Subjective: Patient is feeling much better. His sugars are improved. He demonstrates understanding of management of his blood sugars. He states that his heart burn is much improved. He would like to go home, discussed discharge plans, including follow up with PCP. Patient verbalizes understanding of plan. Objective: Current Medications Acetaminophen 650 mg Q6H PRN PO Calcium Carbonate 300 mg Q8H PRN PO Al Hydrox/Mg Hydrox/Simethicone 30 ml Q6H PRN PO Ondansetron 4 mg Q6H PRN IV Promethazine Q6H PRN IV Magnesium Hydroxide 30 ml DAILY PRN PO Polyethylene Glycol 17 gm DAILY PRN PO Docusate 100 mg BID PRN PO Dextrose 15 gm Q15M PRN PO Dextrose PRN IV Glucagon 1 mg PRN IM D5NS @ 150 mls/hr Q6H40M IV Insulin drip IV Potassium Chloride PRN PRN IV Pantoprazole 20 mg DAILY@07 PO Lantus 27 unit HS SC Vital Signs Date Time Temp Pulse Resp B/P Pulse Ox O2 Delivery O2 Flow Rate FiO2 11/22/16 08:21 74 22 137/79 94 Room air 11/22/16 04:00 97.8 I & O Past 24 hrs 11/22/16 07:00 Intake Total 6329 ml Output Total 4445 ml Balance 1884 ml Intake Oral 2340 ml IV Total 3989 ml Output Urine Total 4445 ml # Bowel Movements 1 Physical Exam General--Awake and alert. No distress. HEENT--Normocephalic. MMM in oral cavity. Lungs--Clear to auscultation bilaterally. Nonlabored respirations. Heart--RRR. NSR on tele. Abdomen--Normal bowel sounds. Soft. Nondistended. Nontender. Extremities--No edema. Past 24 hour Lab Results 11/22/16 05:57 Laboratory Results Past 24 Hrs 11/21/16 14:21: Phosphorus Level 2.4 11/21/16 19:40: Troponin I < 0.012 11/22/16 05:57: Phosphorus Level 2.7, Albumin 3.5, Anion Gap 15.0, Basophils # (Auto) 0.1, Basophils (%) (Auto) 1, Blood Urea Nitrogen 3, Calcium Level 8.9, Carbon Dioxide Level 20, Chloride Level 113, Creatinine 0.59, Eosinophils # (Auto) 0.2 , Eosinophils (%) (Auto) 4, Estimat Glomerular Filtration Rate 199.4, Estimated GFR (Non- 164.8, Glucose Level 119, Hematocrit 37.10, Hemoglobin 13.5, Lymphocytes # (Auto) 2.0, Lymphocytes (%) (Auto) 30, Magnesium Level 1.9, Mean Corpuscular Hemoglobin 31.0, Mean Corpuscular Hemoglobin Concent 36.4, Mean Corpuscular Volume 85, Mean Platelet Volume 11.2, Monocytes # (Auto) 0.6, Monocytes (%) (Auto) 9, Neutrophils # (Auto) 3.6, Neutrophils (%) (Auto) 53, Platelet Count 98, Potassium Level 4.7, Red Blood Count 4.36, Red Cell Distribution Width 11.7, Sodium Level 143, White Blood Count 6.64 Imaging Results 1216 Abdominal series IMPRESSION: 1: Stable chest x-ray exam with no interval radiographic evidence of acute cardiopulmonary process. 2: Stable x-ray of the abdomen with no interval acute process. 3: There is no significant stool load seen on this exam. Assessment/Plan SIRS Criteria met with tachycardia and leukocytosis. Attributed to DKA. CXR negative. Vitals and labs have normalized. DKA Protocol initiated. AG closed. Started lantus, stopped insulin drip and started mealtime insulin. Sugars have improved. GERD Reporting chest pain. EKG showed no evidence of ischemia. Troponin normal. Started pantoprazole. Will continue on d/c. Tobacco abuse Counseled cessation. Marijuana Use Counseled cessation. FEN Diabetic diet. Peripheral IV x 2. IVF per DKA protocol. Electrolytes--phos has been low, improved with replacement. DVT Prophylaxis SCDs Code Status Full code. Dispo Inpatient for above issues. Patient has managed sugars today on his home doses of insulin, he would like to go home today, will arrange discharge. Patient will arrange PCP follow up in the next week. JAVED BRADLEY MD Nov 22, 2016 08:59
--- NOTE | 2016-11-22 11:15 | NUR ---
Hong is up to assessment this AM. Skin is dry and respirations are even and unlabored. He verbalizes no complaints, no pain, no reflux or nausea and is ready for brkfst. Insulin gtt is stopped and 15 units of Insulin given with meals. Appetite is improved and the patient is hoping for a discharge from the hospital today. He is up ad jamshid and independent. Will continue to monitor. Currently resting in bed and able to make needs known.
[2016-11-22 12:21] VITALS: BP 124/60
--- NOTE | 2016-11-22 15:25 | NUR ---
Dr Moncada in room
--- NOTE | 2016-11-22 15:30 | NUR ---
LAC and RAC IV sites DC'd - pressure held until bleeding stopped - drsg applied
--- NOTE | 2016-11-22 15:52 | NUR ---
Patient drsg --> waiting for dismissal instructions
--- NOTE | 2016-11-22 16:32 | Discharge Summary (E) ---
Discharge Summary (A) Admit Date/Time Nov 19, 2016 at 20:07 Discharge Date/Time Nov 22, 2016 Admitting Provider Mike Solorio MD Primary Care Provider Saúl Tracy MD Attending Provider Mike Solorio MD, MD discharging physician Consulting Provider Admission Diagnosis SIRS DKA Dehydration History and Present Illness Hong Levine is a 26 year old male admitted from ED 11/19 with SIRS and DKA. He reported vomiting x 7 today. Feeling constipated. Has had BMs but they have been small, he says. In ED he was initially mildly tachycardic but other vitals charted as stable. WBC was 24.35 with 80% N and 4% B. Chemistry consistent with hyperglycemia and DKA with initial AG = 38. K was initially 7.2. (EKG showed peaked T-waves. Calcium was not given.) Mg 2.5. Phos 6.0. ABG showed pH 7.10, pCO2 123, pO2 135. He was given 1 L NS bolus in ED, another on transfer, insulin regular 7 units, and he was transferred to ICU for further management. On arrival to unit, awake, interactive, pleasant, able to speak in full sentences. Oriented. Not having pain or nausea at present. Onset of illness was just today with vomiting. States he started having vomiting and blood sugar this early AM was actually low at 68. Couldn't keep any food or fluid down though he tried to eat some bread and cheese. No diarrhea. Actually has been feeling more constipated than anything. Has been taking insulin as prescribed and denies missing doses. Prior to today, no fever or chills. No cough. No URI symptoms. No UTI symptoms. Hospital Course and Treatment SIRS Criteria met with tachycardia and leukocytosis. Attributed to DKA. CXR negative. Vitals and labs normalized. DKA Protocol initiated. AG closed. Restarted lantus and mealtime insulin. Stopped insulin drip. Sugars have improved. Type I DM A1c shows adequate sugar control. Continue home regimen. GERD Reporting chest and throat burning. EKG showed no evidence of ischemia. Troponin normal. Started pantoprazole. Recommending OTC PPI on discharge. Tobacco abuse Counseled cessation. Marijuana Use Counseled cessation. FEN Diabetic diet. Peripheral IV x 2. IVF per DKA protocol. Electrolytes--phos has been low, improved with replacement. DVT Prophylaxis SCDs Code Status Full code. Dispo Inpatient for above issues. Patient has managed sugars today on his home doses of insulin, he would like to go home today, will arrange discharge. Patient will arrange PCP follow up in the next week. Discharge Physicial Exam Physical Exam General--Awake and alert. No distress. HEENT--Normocephalic. MMM in oral cavity. Lungs--Clear to auscultation bilaterally. Nonlabored respirations. Heart--RRR. NSR on tele. Abdomen--Normal bowel sounds. Soft. Nondistended. Nontender. Extremities--No edema. Radiology/Laboratory Data 11.20.16 Abdominal series IMPRESSION: 1: Stable chest x-ray exam with no interval radiographic evidence of acute cardiopulmonary process. 2: Stable x-ray of the abdomen with no interval acute process. 3: There is no significant stool load seen on this exam. Laboratory Results Past 5 Days Hemoglobin A1c 8.1H 11/19/16 17:15: Urine Bacteria None seen, Urine Bilirubin Negative, Urine Clarity Clear, Urine Collection Type Clean catch, Urine Color Yellow, Urine Glucose (UA) 2+H, Urine Ketones 4+, Urine Leukocyte Esterase Negative, Urine Nitrite Negative, Urine Protein Negative, Urine RBC 0-2, Urine RBC (Auto) 1+H, Urine Specific Enochs 1.015, Urine Squamous Epithelial Cells 0-2, Urine Urobilinogen 0.2, Urine WBC 0- 2, Urine pH 5.0, Volume Urine Centrifuged 12 ml 11/19/16 17:50: Absolute Band Neutrophils 1.0, Acetone Level 2+, Alanine Aminotransferase (ALT/ SGPT) 57, Albumin 5.4#H, Albumin/Globulin Ratio 2.347H, Alkaline Phosphatase 134H, Anion Gap 44.2H, Aspartate Amino Transf (AST/SGOT) 32, BUN/Creatinine Ratio 16, Band Neutrophils % 4, Basophils # (Auto) , Basophils # (Manual) 0.2, Basophils % (Manual) 1, Basophils (%) (Auto) , Blood Morphology Comment Normal, Blood Urea Nitrogen 20H, Calcium Level 9.7, Calcium/Ionized Calcium Ratio 4.1, Calculated Osmolality 300, Carbon Dioxide Level 5*L, Chloride Level 89L, Creatinine 1.22#, Differential Total Cells Counted 100, Eosinophils # 0.0, Eosinophils # (Auto) , Eosinophils % (Manual) 0, Eosinophils (%) (Auto) , Estimat Glomerular Filtration Rate 86.2, Estimated GFR (Non- 71.3, Glucose Level 865#*H, Hematocrit 45.20, Hemoglobin 15.6, Lymphocytes # 1.2, Lymphocytes # (Auto) , Lymphocytes % (Manual) 5L, Lymphocytes (%) (Auto) , Mean Corpuscular Hemoglobin 30.4, Mean Corpuscular Hemoglobin Concent 34.5, Mean Corpuscular Volume 88, Mean Platelet Volume 11.0H, Monocytes # 2.4, Monocytes # (Auto) , Monocytes % (Manual) 10, Monocytes (%) (Auto) , Neutrophils # 19.5, Neutrophils # (Auto) , Neutrophils (%) (Auto) , Platelet Count 232, Potassium Level 7.2#*H, Red Blood Count 5.13, Red Cell Distribution Width 11.8, Segmented Neutrophils % 80H, Sodium Level 132#L, Total Bilirubin 0.7 , Total Protein 7.7, White Blood Count 24.35H 11/19/16 19:15: Vernon Test pos, Arterial Blood Base Excess -26.0L, Arterial Blood HCO3 4.0L, Arterial Blood Oxygen Saturation 98, Arterial Blood Partial Pressure CO2 123*H, Arterial Blood Partial Pressure O2 135H, Arterial Blood Total CO2 5.0L, Arterial Blood pH 7.10*L, Blood Gas Puncture Site lra, FiO2 % 21.0 11/19/16 19:47: Glucose Level 747*H, Potassium Level 5.5#H, Magnesium Level 2.5H, Phosphorus Level 6.0#H, Thyroid Stimulating Hormone (TSH) 1.00 11/20/16 00:25: Albumin 4.5, Anion Gap 28.1H, Blood Urea Nitrogen 18, Calcium Level 8.7L, Carbon Dioxide Level 9*L, Chloride Level 107, Creatinine 1.01, Estimat Glomerular Filtration Rate 107.2, Estimated GFR (Non- 88.6, Glucose Level 179#H, Phosphorus Level 2.3#L, Potassium Level 4.8, Sodium Level 140# 11/20/16 04:14: Albumin 4.1, Anion Gap 26.8H, Blood Urea Nitrogen 15, Calcium Level 8.3L, Carbon Dioxide Level 9*L, Chloride Level 104, Creatinine 0.93, Estimat Glomerular Filtration Rate 117.9, Estimated GFR (Non- 97.5, Glucose Level 377#H, Phosphorus Level 2.5, Potassium Level 5.5H, Sodium Level 134L 11/20/16 08:12: Albumin 4.3, Anion Gap 26.2H, Blood Urea Nitrogen 14, Calcium Level 9.1, Carbon Dioxide Level 12L, Chloride Level 104, Creatinine 0.92, Estimat Glomerular Filtration Rate 119.4, Estimated GFR (Non- 98.7, Glucose Level 333H, Phosphorus Level 2.7, Potassium Level 5.2H, Sodium Level 137, Basophils # (Auto) 0.0, Basophils (%) (Auto) 0, Eosinophils # (Auto) 0.0, Eosinophils (%) ( Auto) 0, Hematocrit 43.10, Hemoglobin 15.3, Lymphocytes # (Auto) 1.2, Lymphocytes (%) (Auto) 6L, Mean Corpuscular Hemoglobin 31.1, Mean Corpuscular Hemoglobin Concent 35.5, Mean Corpuscular Volume 88, Mean Platelet Volume 10.4H , Monocytes # (Auto) 2.1, Monocytes (%) (Auto) 11, Neutrophils # (Auto) 15.7, Neutrophils (%) (Auto) 82H, Platelet Count 165, Red Blood Count 4.92, Red Cell Distribution Width 12.0, White Blood Count 19.10H 11/20/16 12:10: Albumin 4.1, Anion Gap 23.4H, Blood Urea Nitrogen 12, Calcium Level 8.7L, Carbon Dioxide Level 12L, Chloride Level 106, Creatinine 0.89, Estimat Glomerular Filtration Rate 124.1, Estimated GFR (Non- 102.5, Glucose Level 200#H, Phosphorus Level 1.4#L, Potassium Level 4.6, Sodium Level 137 11/20/16 16:30: Albumin 3.7, Anion Gap 18.7H, Blood Urea Nitrogen 9, Calcium Level 8.7L, Carbon Dioxide Level 17L, Chloride Level 107, Creatinine 0.77L, Estimat Glomerular Filtration Rate 146.6, Estimated GFR (Non- 121.2, Glucose Level 158#H, Phosphorus Level 1.2L, Potassium Level 4.1, Sodium Level 139 11/20/16 20:38: Albumin 3.8, Anion Gap 19.7H, Blood Urea Nitrogen 8, Calcium Level 9.0, Carbon Dioxide Level 13L, Chloride Level 114H, Creatinine 0.75L, Estimat Glomerular Filtration Rate 151.2, Estimated GFR (Non- 124.9, Glucose Level 154H, Phosphorus Level 1.3L, Potassium Level 4.6, Sodium Level 143 11/21/16 00:20: Albumin 3.3L, Anion Gap 14.0, Blood Urea Nitrogen 6L, Calcium Level 8.4L, Carbon Dioxide Level 17L, Chloride Level 110H, Creatinine 0.68L, Estimat Glomerular Filtration Rate 169.3, Estimated GFR (Non- 139.9, Glucose Level 133H, Phosphorus Level 2.4#, Potassium Level 4.6, Sodium Level 137 11/21/16 04:10: Basophils # (Auto) 0.0, Basophils (%) (Auto) 0, Eosinophils # (Auto) 0.1, Eosinophils (%) (Auto) 1, Hematocrit 39.70, Hemoglobin 13.9, Lymphocytes # (Auto ) 1.8, Lymphocytes (%) (Auto) 16L, Mean Corpuscular Hemoglobin 30.7, Mean Corpuscular Hemoglobin Concent 35.0, Mean Corpuscular Volume 88, Mean Platelet Volume 10.2H, Monocytes # (Auto) 1.1, Monocytes (%) (Auto) 10, Neutrophils # ( Auto) 8.1, Neutrophils (%) (Auto) 73H, Platelet Count 108L, Red Blood Count 4.53 , Red Cell Distribution Width 12.0, White Blood Count 11.09H 11/21/16 04:45: Albumin 3.2L, Anion Gap 13.1, Blood Urea Nitrogen 5L, Calcium Level 8.4L, Carbon Dioxide Level 19L, Chloride Level 111H, Creatinine 0.69L, Estimat Glomerular Filtration Rate 166.4, Estimated GFR (Non- 137.5, Glucose Level 128H, Phosphorus Level 1.9#L, Potassium Level 3.9, Sodium Level 138, Troponin I < 0.012 11/21/16 08:11: Albumin 3.4, Anion Gap 15.2H, Blood Urea Nitrogen 5L, Calcium Level 8.7L, Carbon Dioxide Level 17L, Chloride Level 115H, Creatinine 0.73L, Estimat Glomerular Filtration Rate 155.9, Estimated GFR (Non- 128.9, Glucose Level 112H, Phosphorus Level 1.9L, Potassium Level 4.5, Sodium Level 143 11/21/16 14:21: Phosphorus Level 2.4# 11/21/16 19:40: Troponin I < 0.012 11/22/16 05:57: Albumin 3.5, Anion Gap 15.0, Basophils # (Auto) 0.1, Basophils (%) (Auto) 1, Blood Urea Nitrogen 3L, Calcium Level 8.9, Carbon Dioxide Level 20L, Chloride Level 113H, Creatinine 0.59L, Eosinophils # (Auto) 0.2, Eosinophils (%) (Auto) 4 , Estimat Glomerular Filtration Rate 199.4, Estimated GFR (Non- 164.8, Glucose Level 119H, Hematocrit 37.10L, Hemoglobin 13.5, Lymphocytes # ( Auto) 2.0, Lymphocytes (%) (Auto) 30, Magnesium Level 1.9#, Mean Corpuscular Hemoglobin 31.0, Mean Corpuscular Hemoglobin Concent 36.4, Mean Corpuscular Volume 85, Mean Platelet Volume 11.2H, Monocytes # (Auto) 0.6, Monocytes (%) ( Auto) 9, Neutrophils # (Auto) 3.6, Neutrophils (%) (Auto) 53, Phosphorus Level 2.7, Platelet Count 98L, Potassium Level 4.7, Red Blood Count 4.36L, Red Cell Distribution Width 11.7L, Sodium Level 143, White Blood Count 6.64 Discharge Provider's Instructions You were admitted for DKA. This has resolved. You developed heart burn due to the vomiting. You were given pantoprazole while in the hospital. Please continue your insulin regimen as it was prescribed prior to this admission. You will need to make an appointment with for follow up. Discharge Diet: Carbohydrate controlled Discharge Medications Continued Medications: Insulin Aspart (Novolog) 100 Unit/1 Ml Insuln.pen 15 UNIT SC TIDWM PEN Insulin Glargine,Hum.rec.anlog (Lantus Solostar) 100 Unit/1 Ml Insuln.pen 27 UNIT SC HS PEN Follow up Follow up Referrals: Family Practice - Within 1 week @ [address] Tracy with Dr. Tracy Discharge Diagnosis SIRS DKA Type I DM Copies to: End of Report . JAVED BRADLEY MD Nov 22, 2016 16:32
--- NOTE | 2016-11-22 16:52 | NUR ---
Dismissal instructions reviewed with patient - will take insulin as directed and will make appt to see Dr Tracy in 1 week
--- NOTE | 2016-11-22 16:58 | NUR ---
Dismissed ambulatory c [employer]NA[employer] accompanying - belongings taken with
== END 2016-11-22 16:58 | disposition home or self-care (01) | DRG 638 ==
LOC: ED 16:30 → ICU 20:07 → UNDOADMIN 20:07 → ICU 11-20 06:48
PROVIDERS: ADMIT Internal Medicine; ATTEND Internal Medicine
DX: E10.10 Type 1 diabetes mellitus with ketoacidosis without coma (principal); R65.10 Systemic inflammatory response syndrome (SIRS) of non-infectious origin without acute organ dysfunction; I69.151 Hemiplegia and hemiparesis following nontraumatic intracerebral hemorrhage affecting right dominant side; E86.0 Dehydration; K21.9 Gastro-esophageal reflux disease without esophagitis; F17.220 Nicotine dependence, chewing tobacco, uncomplicated; Z79.4 Long term (current) use of insulin; Z91.81 History of falling
CPT/HCPCS: 36415; 74022; 80053; 80069; 81003; 81015; 82009; 82803; 82947; 83036; 83735; 84100; 84132; 84443; 84484; 85025; 93005; 93010; 96361; 96374; 99284; 99291

== ENCOUNTER → 2017-03-04 | Outpatient (CLI) | payer MEDICARE, OTHER ==
[~2017-03-04] MED LIST changes: +INSU100I14 SC; +LANTUS SOL100 UNIT/1 SC
== END ==
LOC: EMS 17:39
DX: Z53.20 Procedure and treatment not carried out because of patient's decision for unspecified reasons (principal)

== ENCOUNTER → 2017-03-09 | Outpatient (CLI) | payer MEDICARE, OTHER ==
[2017-03-09 09:18] LABS: BASOPHILS % (AUTO) 1 % (0-2); EOSINOPHILS # (AUTO) 0.2 10^3uL; EOSINOPHILS % (AUTO) 4 % (0-4); LYMPHOCYTES # (AUTO) 1.8 X10^3; MEAN CORPUSCULAR HEMOGLOBIN 30.5 PG (26.0-34.0); MEAN CORPUSCULAR HGB CONC 34.6 g/dL (31.0-37.0); MEAN CORPUSCULAR VOLUME 88 FL (80-100); MEAN PLATELET VOLUME 9.9 FL (6.0-9.5); MONOCYTES # (AUTO) 0.5 X10^3; MONOCYTES % (AUTO) 10 % (3-11); NEUTROPHILS # (AUTO) 2.1 X10^3; NEUTROPHILS % (AUTO) 46 % (51-67); PLATELET COUNT 260 10^3uL (150-450); WHITE BLOOD COUNT 4.56 10^3uL (4.0-11.0)
[2017-03-09 09:35] LABS: ALBUMIN 4.2 g/dL (3.4-5.0); ANION GAP 16.8 MEQ/L (3-15); CALCULATED IONIZED CALCIUM 4.3 mg/dL (3.8-4.6); TOTAL PROTEIN 6.8 g/dL (6.4-8.5)
== END ==
LOC: LAB 09:06
PROVIDERS: ATTEND Family Medicine
DX: E78.2 Mixed hyperlipidemia (principal); D50.8 Other iron deficiency anemias; R79.89 Other specified abnormal findings of blood chemistry; E10.65 Type 1 diabetes mellitus with hyperglycemia; E03.4 Atrophy of thyroid (acquired)
CPT/HCPCS: 36415; 80053; 80061; 82043; 83036; 84436; 84443; 85025

== ENCOUNTER → 2017-03-11 | Outpatient (CLI) | payer MEDICARE, OTHER | LOC: EMS 17:20 | DX: Z53.20 Procedure and treatment not carried out because of patient's decision for unspecified reasons (principal) ==